=== PATIENT | male | born 2005 | race Caucasian/White ===

== ENCOUNTER 2023-08-17 13:30 | Outpatient (RCR) | payer OTHER, SELFPAY ==
--- NOTE | 2023-07-22 10:31 | HP.OTEVAL ---
Patient's Visit Information Visit Information Visit Information: ROXANN ZACARIAS is a 17 year old M, referred to Occupational Therapy by JADEN ROBLERO, with a diagnosis of left SF proximal phalanx fx. Date of Evaluation: 07/22/23 Occupational Therapist: Paola Austin, GINO/Jose De Jesus, CHT Subjective Subjective: This 17 year old male was seen for OT eval with dx of left small finger proximal phalanx fx. 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 Pt returned home to [place] for treatment. Pt underwent ORIF of left small finger proximal phalanx fx on 07/04/23. Pt has returned to the [facility] and due to newly healing structures pt is limited with all ADLs and IADLs that required use of bilateral hands. Pt is also unable to play baseball at this time. Pt is ready to return to playing ball and is hopeful when he returns to the [facility] at the [employer] [facility] the end of July he will be release to play baseball again. Pain left hand: Current Pain Intensity: 0 ROM MP: right LF 0/95 left 0/85 PIP: right LF 0/95 left -20/65 DIP: right LF +5 /73 let +5/75 ROM Comments: pt demo with slight limited PIP extension- all other ROM is moving nicely pt can get soft composite fist after his exercise. Strength Strength Comments: NT at this time Sensation Sensation Comments: denies Quick DASH-Disab of Arm,Shoulder& Hand Quick DASH Score: 68.3325 Goals Goal:100% adherence to protocol: Yes Goal:Daily scar massage when approriate: Yes Goal:ROM equal to unaffected hand: Yes Goal:Air Carrier Inspector/Pinch strength at least 75% of unaffected hand: Yes Comment: will not test until week 6 Goal:No pain with affected hand use: Yes Goal:PIP Circumferences equal to unaffected hand: Yes Goal:Full use of affected hand in daily activities including work: Yes Rehabilitation General Assessment: pt arrives 2 weeks and 4 days s/p from a left small finger ORIF of proximal phalanx fx. pt currently limited with full use of left hand with ADLs and IADls due to newly healing structures. Pt demo need for skilled OT services 1-2x week for 4-6 weeks. Pt was placed in orthosis for night and protection throughout the day at 1 week s/p. Pt demo understanding of his ROM ex. (tendon glide) pt demo with good ROM noted slight limitation with PIP extension- therapist ed. pt on placing MCPJ in flexion and working on PIP extension. Pt demo exercise well and noted increase in PIP extension. Therapist also removed pts stitched this date. pt demo understanding of AROM exercise and agree to POC. Rehabilitation Potential: Excellent Anticipated Interventions Anticipated Interventions: A/AAROM/PROM, Edema Control, Scar Care, Triggerpoint Release, Orthoses, Joint Protection/Energy Conservation, Education re Diagnosis and Home Program Visit Plan Frequency: 1-2x /Week Duration: 4-6 Weeks General Plan: scar mtg edema AROM light PROM as needed modalities as needed TEXT: Thank you for the opportunity to evaluate your patient. For Medicare and Medicare HMO plans, please review the plan of care and approve it. It will need to be FAXED BACK to us at [phone] for Medicare purposes. Please let me know if there are questions or concerns regarding this plan of care. Physician Signature: Date:
--- NOTE | 2023-08-08 15:01 | HP.OTREVAL ---
Re-Evaluation Intro: JADEN ROBLERO, It has been my pleasure to treat ROXANN ZACARIAS over the last 4 visits for left SF proximal phalanx fx. Please see the progress note below for an update on the occupational therapy plan of care! Subjective Subjective: pt arrives 4 weeks from ORIF proximal pahlx fx with ORIF. pt is wearing safe position brace at night and during the day around others- pt states when he works on flexion he is noticing it is more difficult to straighten his finger- (therapist ed. pt this is common) and has initiated use of K-tape to improve extensor lag and reverse blocking- pt demo understanding . Objective Objective/Function: left LF PIP ROM -15/ 70 (after therapy pt demo 90* flexion-25* of PIP extension ) pt states with AROM finger feels tight 3-4/10 discomfort not really Painful left DIP flexion 50* after therapy (65* flexion) left DIP Ext +5 ( as his unaffected has hyper ext as well) pt demo with good gains in ROM pt is working to maintain balance of flexion and extension. pt has been doing all his ex. and progressing well- please re-eval and advise. Plan Plan Frequency: 1-2x /Week Duration: 4-6 Weeks Plan: wait for order Goals Goals Patient Goals: Regain Mobility, Use Hand/Wrist/Arm Normally Again and Other Other: return to playing baseball Goal:100% adherence to protocol: Yes Goal:Daily scar massage when approriate: Yes Goal:ROM equal to unaffected hand: Yes Goal:Administrative Operations Coordinator/Pinch strength at least 75% of unaffected hand: Yes Goal:No pain with affected hand use: Yes Goal:PIP Circumferences equal to unaffected hand: Yes Goal:Full use of affected hand in daily activities including work: Yes Anticipated Interventions Anticipated Interventions Anticipated Interventions: A/AAROM/PROM, Edema Control, Scar Care, Triggerpoint Release, Orthoses, Joint Protection/Energy Conservation, Education re Diagnosis and Home Program Re-Evaluation Ending Re-evaluation ending: Please do not hesitate to contact me at [phone] by phone or if you have questions or concerns regarding this new plan of care! Sincerely, Paola Austin, OTR/L, CHT
--- NOTE | 2023-11-23 10:28 | HP.OTDCSUM_ITS ---
Discharge Summary D/C Summary: It has been my pleasure to treat ROXANN ZACARIAS under orders from JADEN ROBLERO, for the diagnosis of left SF proximal phalanx fx for a total of 5 visit(s). Please see the following information for a summary of their discharge status. Overall Improvement % Improvement: 70 Objective Objective/Function: PIP -15/90 DIP 0/70 pt has returned to lifting with team- will return home for summer. right medical massage therapist strength 120# left is 90# pt states he has returned to performing his daily tasks without difficulty Goals Patient Goals: Regain Mobility, Use Hand/Wrist/Arm Normally Again and Other Other: return to playing baseball Goal:100% adherence to protocol: Yes Goal:Daily scar massage when approriate: Yes Goal:ROM equal to unaffected hand: Yes Goal:Shaft Repairer/Pinch strength at least 75% of unaffected hand: Yes Goal:No pain with affected hand use: Yes Goal:PIP Circumferences equal to unaffected hand: Yes Goal:Full use of affected hand in daily activities including work: Yes Plan Plan: D/C D/C Information Discharge Comments: pt leaving collage to return home- will cont.with HEP- pt to get LMB extension splint- strengthen as tolerated d/c sentence: If there are questions or concerns regarding this patient's occupational therapy, please fell free to call me at [phone]. Thank you for the referral of this patient. Sincerely, Paola Austin, OTR/L, CHT
== END 2023-08-17 19:00 | disposition home or self-care (01) ==
LOC: OT 13:30
DX: S62.617D Displaced fracture of proximal phalanx of left little finger, subsequent encounter for fracture with routine healing (principal)
CPT/HCPCS: 97110; 97140; 97166; 97530